=== PATIENT | female | born 1995 | race Caucasian/White ===

== ENCOUNTER 2017-10-26 20:18 | Emergency (ER) | payer BC, OTHER ==
[~2017-10-26] VITALS: Ht 175.3 cm; Wt 90.7 kg
[2017-10-26 21:06] LABS: ABSOLUTE NEUTROPHILS 6.3 thou/uL (1.4-8.2); BASOPHILS 0.5 % (0.0-2.0); HEMATOCRIT 40.9 % (37.0-47.0); LYMPHOCYTES 8.7 % (24.0-44.0); MCH 29.9 pg (26.0-34.0); MCHC 34.2 g/dL (28.0-37.0); MCV 87.6 fL (80.0-100.0); MONOCYTES 7.8 % (1.0-8.0); PLATELET COUNT 178 thou/uL (150-400); RBC 4.67 mil/uL (4.20-5.00); RDW 13.3 % (10.5-14.5); WBC 7.6 thou/uL (4.0-11.0)
[2017-10-26 21:12] LABS: ANION GAP 9 mmol/L (7-16); BUN 6 mg/dL (7-18); CALCIUM 8.9 mg/dL (8.5-10.1); CHLORIDE 99 mmol/L (98-107); CO2 23 mmol/L (21-32); CREATININE 0.7 mg/dL (0.6-1.0); GLUCOSE 103 mg/dL (74-106); POTASSIUM 3.5 mmol/L (3.5-5.1); SODIUM 131 mmol/L (136-145)
[2017-10-26 21:19] LABS: ALBUMIN 3.9 g/dL (3.4-5.0); DIRECT BILIRUBIN < 0.1 mg/dL (<0.1-0.3); LIPASE 77 U/L (73-393); SGOT 17 U/L (15-37); SGPT 24 U/L (30-65); TOTAL BILIRUBIN 0.3 mg/dL (<0.1-1.0); TOTAL PROTEIN 7.6 g/dL (6.4-8.2)
[2017-10-26] MEDS ORDERED: PHENERGAN 25 MG25 M1 PO (21:49)
[2017-10-26] MEDS ORDERED: PROMS25 WY RECTAL (21:49)
[2017-10-26] MEDS ORDERED: ZOFRAN ODT4 MG PO (21:49)
[2017-10-26 22:03] LABS: URINE BILIRUBIN NEGATIVE (Negative); URINE BLOOD NEGATIVE (Negative); URINE CLARITY CLEAR; URINE COLOR YELLOW; URINE GLUCOSE-RANDOM* NEGATIVE (Negative); URINE KETONES TRACE (Negative); URINE LEUKOCYTES NEGATIVE (Negative); URINE NITRITE NEGATIVE (Negative); URINE PROTEIN (DIPSTICK) NEGATIVE (Negative); URINE SPECIFIC GRAVITY <= 1.005 (1.005-1.035); URINE UROBILINOGEN 0.2 E.U./dl (0.2-1.0)
== END 2017-10-26 22:19 | disposition home or self-care (01) ==
LOC: ER 20:18
PROVIDERS: Emergency Medicine
DX: B34.9 Viral infection, unspecified (principal)

== ENCOUNTER 2020-02-14 19:08 | Emergency (ER) | payer BC, OTHER ==
[~2020-02-14] VITALS: Ht 175.3 cm; Wt 90.7 kg
[~2020-02-14 19:08] MED LIST: PHENERGAN 25 MG25 M1 PO; PROMS25 WY RECTAL; ZOFRAN ODT4 MG PO
[2020-02-14] MEDS ORDERED: IBUPROFEN 600600 M1 PO (20:55)
[2020-02-14 21:07] VITALS: BP 130/76
== END 2020-02-14 21:07 | disposition home or self-care (01) ==
LOC: ER 19:08
DX: S93.401A Sprain of unspecified ligament of right ankle, initial encounter (principal); Z79.899 Other long term (current) drug therapy; X50.1XXA Overexertion from prolonged static or awkward postures, initial encounter; Y93.89 Activity, other specified; Y92.89 Other specified places as the place of occurrence of the external cause; Y99.8 Other external cause status